=== PATIENT | female | born 1955 | race Caucasian/White ===

== ENCOUNTER 2019-05-30 16:31 | Inpatient (IN) ==
[2019-05-30] MEDS ORDERED: *HR* FentaNYL (PF) 100 MCG/2 ML VIAL IVP ONE (16:59)
[2019-05-30] MEDS ORDERED: Ondansetron 4 MG/2 ML VIAL IVP ONE (16:59)
[2019-05-30 17:41] LABS: Basophils % 0.3 %; Hematocrit 45.4 % (35.3-44.9); Hemoglobin 15.3 g/dL (11.5-15.4); Immature Granulocytes % 0.4 % (0-4); Lymphocytes # 0.3 K/mcL (0.6-4.6); Lymphocytes % 4.5 %; Mean Corpuscular HGB Conc 33.7 g/dL (31.6-35.5); Mean Corpuscular Hemoglobin 30.8 pg (28.0-33.3); Mean Corpuscular Volume 91.5 fL (83.0-100.0); Mean Platelet Volume 9.6 fL (9.4-12.4); Monocytes # 0.1 K/mcL (0.0-1.3); Monocytes % 0.8 %; Neutrophils # 6.9 K/mcL (1.6-8.9); Platelet Count 220 K/mcL (140-400); Red Blood Count 4.96 M/mcL (3.82-4.97); Red Cell Distribution Width 12.4 % (11.5-14.5); White Blood Count 7.3 K/mcL (4.3-11.1)
[2019-05-30 17:56] LABS: Calcium 9.5 mg/dL (8.6-10.3); Potassium 4.2 mEq/L (3.5-5.1)
[2019-05-30] MEDS ORDERED: 0.9 % Sodium Chloride 1,000 ML IVC ONE (18:35)
[2019-05-30] MEDS ORDERED: Morphine Sulfate 2 MG/ML SYRINGE IVP ONE ×2 (18:57→20:42)
[2019-05-30 19:42] LABS: Bilirubin,Urine Negative (Negative); Blood,Urine Moderate (Negative); Clarity,Urine Cloudy (Clear); Color,Urine Yellow (Yellow); Glucose,Urine (UA) Normal (Normal); Ketones,Urine Negative (Negative); Leukocyte Esterase,Urine Moderate (Negative); Nitrite,Urine Positive (Negative); PH,Urine 7.5 pH Units (5.0-8.0); Protein,Urine Trace mg/dL (Neg-Trace); Specific Gravity,Urine 1.012 (1.010-1.025); Urobilinogen,Urine Normal (Normal)
[2019-05-30 19:45] LABS: Bacteria,Urine Many per hpf (None-Few); Hyaline Casts,Urine Moderate per lpf (None-Few); RBC,Urine 15-30 per hpf (0-3); Squamous Epithelial Cell,Urine Few per lpf (None-Few); WBC,Urine 50-100 per hpf (0-3)
[2019-05-30] MEDS ORDERED: cefTRIAXone 1,000 MG in Water for inj. (sterile) 10 ML IVP ONE (20:04)
[2019-05-30] MEDS ORDERED: Naloxone 0.4 MG/ML INJ IVP PRN (20:36)
[2019-05-30] MEDS ORDERED: Ondansetron 4 MG/2 ML VIAL IVP PRN (20:42)
[2019-05-30] MEDS ORDERED: Acetaminophen 325 MG TABLET PO PRN (20:42)
[2019-05-30] MEDS ORDERED: 0.9 % Sodium Chloride 1,000 ML IVC SCH (20:45)
[2019-05-30] MEDS: Ketorolac 15 MG/ML VIAL IVP PRN (22:10)
[2019-05-30] MEDS: traMADol 50 MG TABLET PO PRN (23:19)
[2019-05-31 05:42] LABS: INR 1.1; Prothrombin Time 12.9 Seconds (9.4-12.1)
[2019-05-31 05:45] LABS: Activated Partial Thrombo Time 32.3 Seconds (26.0-36.0); Mean Corpuscular HGB Conc 33.6 g/dL (31.6-35.5); Mean Corpuscular Hemoglobin 30.7 pg (28.0-33.3); Mean Corpuscular Volume 91.3 fL (83.0-100.0); Mean Platelet Volume 9.9 fL (9.4-12.4); Platelet Count 206 K/mcL (140-400); Red Blood Count 4.27 M/mcL (3.82-4.97); Red Cell Distribution Width 12.5 % (11.5-14.5)
[2019-05-31 05:46] LABS: Hemoglobin 13.1 g/dL (11.5-15.4); White Blood Count 15.3 K/mcL (4.3-11.1)
[2019-05-31] MEDS ORDERED: *HR* Heparin 5,000 UNIT/ML VIAL SQ SCH (06:00)
[2019-05-31 06:03] LABS: BUN/Creatinine Ratio 17 (6-26); Blood Urea Nitrogen 17 mg/dL (8-23); Calcium 8.6 mg/dL (8.6-10.3); Carbon Dioxide 24 mEq/L (23-29); Chloride 105 mEq/L (98-107); Glucose 131 mg/dL (70-105); Osmolality,Calculated 291 (280-300); Potassium 4.4 mEq/L (3.5-5.1); Sodium 139 mEq/L (136-145); eGFR For African Americans > 60 (> 60); eGFR For Non-African Americans 56 (> 60)
[2019-05-31] MEDS: Ketorolac 15 MG/ML VIAL IVP PRN ×3 (06:17→23:24)
[2019-05-31] MEDS: traMADol 50 MG TABLET PO PRN (08:13)
[2019-05-31] MEDS ORDERED: Venlafaxine XR (24 HR) 150 MG CAP.ER.24H PO SCH (09:00)
[2019-05-31] MEDS ORDERED: (Linaclotide [Linzess] 290 MCG) PO SCH (09:00)
[2019-05-31] MEDS ORDERED: Primidone 50 MG TABLET PO SCH (09:00)
[2019-05-31] MEDS ORDERED: Metoprolol XL (24 HR) Succ 50 MG TAB.ER.24H PO SCH (09:00)
[2019-05-31] MEDS ORDERED: *HR* Propofol 200 MG/20 ML VIAL IVP ONE (10:25)
[2019-05-31] MEDS ORDERED: *HR* FentaNYL (PF) 100 MCG/2 ML VIAL ONE (10:25)
[2019-05-31] MEDS ORDERED: Ondansetron 4 MG/2 ML VIAL ONE (10:26)
[2019-05-31] MEDS ORDERED: Dexamethasone 4 MG/ML VIAL ONE (10:26)
[2019-05-31] MEDS ORDERED: Lidocaine -MPF 2% 2 ML VIAL ONE (10:26)
[2019-05-31] MEDS ORDERED: Isovue-300 50ML VIAL ONE (10:31)
[2019-05-31] MEDS ORDERED: EPHEDrine 50 MG/ML VIAL ONE (11:18)
[2019-05-31 12:10] LABS: Acinetobacter baumannii by PCR Not Detected (Not Detect); Candida albicans by PCR Not Detected (Not Detect); Candida glabrata by PCR Not Detected (Not Detect); Candida krusei by PCR Not Detected (Not Detect); Candida parapsilosis by PCR Not Detected (Not Detect); Candida tropicalis by PCR Not Detected (Not Detect); Enterobacter cloacae Cmplx PCR Not Detected (Not Detect); Enterococcus by PCR Not Detected (Not Detect); Escherichia coli by PCR DETECTED (Not Detect); Klebsiella oxytoca by PCR Not Detected (Not Detect); Klebsiella pneumoniae by PCR Not Detected (Not Detect); Proteus by PCR Not Detected (Not Detect); Pseudomonas aeruginosa by PCR Not Detected (Not Detect); Serratia marcescens by PCR Not Detected (Not Detect); Staphylococcus aureus by PCR Not Detected (Not Detect); Staphylococcus by PCR Not Detected (Not Detect); Streptococcus agalactiae(B)PCR Not Detected (Not Detect); Streptococcus by PCR Not Detected (Not Detect); Streptococcus pneumoniae PCR Not Detected (Not Detect); Streptococcus pyogenes (A) PCR Not Detected (Not Detect); blaKPC Carbapenem-Resist Gene Not Detected (Not Detect); mecA Methicillin-Resist Gene Not Detected (Not Detect); vanA/B Vancomycin-Resist Genes Not Detected (Not Detect)
[2019-05-31] MEDS ORDERED: Naloxone 0.4 MG/ML INJ IVP PRN (12:23)
[2019-05-31] MEDS ORDERED: traMADol 50 MG TABLET PO PRN (12:23)
[2019-05-31] MEDS ORDERED: Acetaminophen 325 MG TABLET PO PRN (12:23)
[2019-05-31] MEDS: *HR* Heparin 5,000 UNIT/ML VIAL SQ SCH ×2 (14:00→23:24)
[2019-05-31] MEDS: Ondansetron 4 MG/2 ML VIAL IVP PRN (16:27)
[2019-05-31] MEDS: cefTRIAXone 2,000 MG in Water for inj. (sterile) 20 ML IVP SCH (19:49)
[2019-05-31] MEDS ORDERED: cefTRIAXone 1,000 MG in Water for inj. (sterile) 10 ML IVPB SCH (20:00)
[2019-06-01] MEDS: *HR* Heparin 5,000 UNIT/ML VIAL SQ SCH ×3 (05:05→20:29)
[2019-06-01] MEDS: Primidone 50 MG TABLET PO SCH (07:25)
[2019-06-01] MEDS: Venlafaxine XR (24 HR) 150 MG CAP.ER.24H PO SCH (07:25)
[2019-06-01] MEDS: Metoprolol XL (24 HR) Succ 50 MG TAB.ER.24H PO SCH (07:25)
[2019-06-01 09:57] LABS: Basophils % 0.1 %; Hematocrit 37.4 % (35.3-44.9); Hemoglobin 12.3 g/dL (11.5-15.4); Immature Granulocytes % 1.3 % (0-4); Lymphocytes % 6.1 %; Mean Corpuscular HGB Conc 32.9 g/dL (31.6-35.5); Mean Corpuscular Hemoglobin 30.6 pg (28.0-33.3); Mean Platelet Volume 10.5 fL (9.4-12.4); Monocytes # 0.9 K/mcL (0.0-1.3); Monocytes % 5.2 %; Neutrophils # 14.5 K/mcL (1.6-8.9); Platelet Count 161 K/mcL (140-400); Red Blood Count 4.02 M/mcL (3.82-4.97); Red Cell Distribution Width 12.7 % (11.5-14.5); Segmented Neutrophils % 87.3 %; White Blood Count 16.7 K/mcL (4.3-11.1)
[2019-06-01] MEDS: Ondansetron 4 MG/2 ML VIAL IVP PRN (10:02)
[2019-06-01 10:12] LABS: BUN/Creatinine Ratio 23 (6-26); Blood Urea Nitrogen 22 mg/dL (8-23); Calcium 9.2 mg/dL (8.6-10.3); Carbon Dioxide 27 mEq/L (23-29); Chloride 105 mEq/L (98-107); Glucose 100 mg/dL (70-105); Osmolality,Calculated 293 (280-300); Potassium 3.8 mEq/L (3.5-5.1); Sodium 140 mEq/L (136-145); eGFR For African Americans > 60 (> 60); eGFR For Non-African Americans 60 (> 60)
[2019-06-01] MEDS: Ketorolac 15 MG/ML VIAL IVP PRN (18:32)
[2019-06-01] MEDS: cefTRIAXone 2,000 MG in Water for inj. (sterile) 20 ML IVP SCH (20:28)
[2019-06-02] MEDS: Ketorolac 15 MG/ML VIAL IVP PRN ×2 (01:19→10:00)
[2019-06-02] MEDS: *HR* Heparin 5,000 UNIT/ML VIAL SQ SCH (05:20)
[2019-06-02 07:14] VITALS: BP 159/83
[2019-06-02] MEDS ORDERED: cefTRIAXone 2,000 MG in 0.9 % Sodium Chloride Mini Bag 100 ML IVPB ONE (09:49)
[2019-06-02] MEDS: Metoprolol XL (24 HR) Succ 50 MG TAB.ER.24H PO SCH (10:00)
[2019-06-02] MEDS: Primidone 50 MG TABLET PO SCH (10:00)
[2019-06-02] MEDS: Venlafaxine XR (24 HR) 150 MG CAP.ER.24H PO SCH (10:00)
[2019-06-02] MEDS ORDERED: FLU Vac QV 19-20 (6Month+)/PF 0.5 ML SYRINGE IM ONE (10:09)
[2019-06-03 19:10] LABS: Calculi Mass 26 mg
== END 2019-06-02 12:45 | disposition home or self-care (01) | DRG 854 ==
LOC: EMEROOARM 16:31 → 3ANU 16:31 → SUATTDRO 20:34 → 3ANU 21:05 → SUATTDRO 05-31 16:18
PROVIDERS: ADMIT Internal Medicine; ATTEND Internal Medicine